=== PATIENT | male | born 1970 | race Caucasian/White ===

== ENCOUNTER 2024-06-27 04:19 | Emergency (ER) | payer SELFPAY ==
[2024-06-27 04:28] VITALS: BP 192/82; PULSE 72; TEMP 36.9; O2SAT 98; BMI 35.3
--- NOTE | 2024-06-27 04:30 | ED.GENADUL1 ---
HPI HPI - General Adult General Chief complaint: Wound/Laceration Stated complaint: UPPER EXTREMITY INJURY Time Seen by Provider: 06/27/24 04:27 History of Present Illness HPI narrative: 54-year-old male presents for laceration to his right wrist. This was sustained at work just before coming in to the emergency department on the sharp edge of a piece of metal. There is no foreign body. No weakness or numbness and no other injury was sustained. His last tetanus shot was more than 10 years ago. Related Data Home Medications ?Medication ?Instructions ?Recorded ?Confirmed No Known Home Medications 06/27/24 06/27/24 Allergies Allergy/AdvReac Type Severity Reaction Status Date / Time No Known Drug Allergies Allergy Verified 06/27/24 04:28 Opioid HPI Opioid Management Most Recent Opioid Data: Last Pain Scale 1 06/27/24 04:41 06/27/24 Review of Systems ROS Narrative A ten point review of systems is negative except as noted above. PFSH PFSH Social History Little interest or pleasure in doing things: not at all Feeling down, depressed, or hopeless: not at all Exam Narrative Exam Narrative: Nurses note and vital signs reviewed and patient is not hypoxic. General: The patient appears well and in no apparent distress. Patient is resting comfortably on cart. Skin: Warm, dry, no pallor noted. There is no rash noted. Head: Normocephalic, atraumatic Eye: Normal conjunctiva, no drainage Ears, Nose, Mouth, and Throat: oral mucosa is moist. Nares patent. Cardiovascular: Regular Rate and Rhythm Respiratory: Patient is in no distress, no accessory muscle use Back: non-tender GI: Musculoskeletal: On the flexor side of his right wrist is a 1 and half centimeter laceration. There is no active bleeding or foreign bodies noted. Fingers have full range of motion. Sensation intact. No open wounds present. Neurological: A&O, normal speech Psychiatric: Cooperative Constitutional Vital Signs, click to edit/add: Last Vital Signs Temp 98.5 F 06/27/24 04:28 Pulse 72 06/27/24 04:28 Resp 18 06/27/24 04:28 BP 192/82 H 06/27/24 04:28 Pulse Ox 98 06/27/24 04:28 O2 Del Method Room Air 06/27/24 04:28 Course Vital Signs Vital signs: Vital Signs Temperature 98.5 F 06/27/24 04:28 Pulse Rate 72 06/27/24 04:28 Respiratory Rate 18 06/27/24 04:28 Blood Pressure 192/82 H 06/27/24 04:28 Pulse Oximetry 98 06/27/24 04:28 Oxygen Delivery Method Room Air 06/27/24 04:28 Temperature 98.5 F 06/27/24 04:28 Pulse Rate 72 06/27/24 04:28 Respiratory Rate 18 06/27/24 04:28 Blood Pressure 192/82 H 06/27/24 04:28 Pulse Oximetry 98 06/27/24 04:28 Oxygen Delivery Method Room Air 06/27/24 04:28 Medical Decision Making MDM Narrative Medical decision making narrative: Sutures to be removed in 8 days. Tetanus status is updated. Treatment diagnosis and follow-up were discussed with the patient. No evidence of tendon injury. Differential Diagnosis Differential Diagnosis: Laceration, tendon laceration Discharge Plan Discharge Chief Complaint: Wound/Laceration Clinical Impression: Laceration of right wrist Patient Disposition: Home, Self-Care Time of Disposition Decision: 04:45 Condition: Good Mode of Transportation: Private Vehicle Prescriptions / Home Meds: No Action No Known Home Medications Print Language: [place] Instructions: Laceration (ED) Additional Instructions: Sutures to be removed on July 05 Referrals: Physician,Non-Staff, MD [Primary Care Provider] - 1 week Procedures ED Procedure Instructions Procedures Procedures: The following procedure was performed by me. Local infiltration was carried out with 1% lidocaine without epinephrine resulting in complete skin anesthesia. The area was prepped with Betadine x 3 and draped sterilely. It was explored for foreign bodies and none were found. The length of the wound was examined and no tendon injury was noted. The wound was then closed with three 4-0 Ethilon sutures resulting in good skin reapproximation and no complications and complete hemostasis.
[2024-06-27] MEDS: LIDOCAINE HCL 1% 100 MG/10 ML MDV INJ (04:49)
[2024-06-27] MEDS: ADACEL DIPH,PERTUSS(ACELL),TET VAC/PF 0.5 ML ADULT SYRINGE IM (04:49)
--- NOTE | 2024-06-27 05:15 | PC.NURSE ---
i gave this patient verbal and paper discharge orders along with 1 work note and workers compensation papers, and a list of workers compensation offices, this patient voices yes to understanding these. at time of discharge this patient voices no concerns and shows no signs of distress.
== END 2024-06-27 05:18 | disposition home or self-care (01) ==
PROVIDERS: Emergency Provider Emergency Medicine
DX: S61.511A Laceration without foreign body of right wrist, initial encounter (principal); Z23 Encounter for immunization; W26.8XXA Contact with other sharp object(s), not elsewhere classified, initial encounter
CPT/HCPCS: 12001; 90471; 90715; 99283